=== PATIENT | female | born 1980 | race Two or more races ===

== ENCOUNTER 2023-01-28 04:02 | Emergency (ER) | payer OTHER ==
[~2023-01-28] VITALS: Ht 165.1 cm; Wt 113.4 kg
[2023-01-28 06:00] LABS: PH,URINE 5.5 (5.0-8.0); URINE APPEARANCE Clear; URINE BILIRRUBIN Negative (NEGATIVE); URINE BLOOD Moderate; URINE COLOR Yellow; URINE GLUCOSE Negative (NEGATIVE); URINE LEUKOCYTE Negative; URINE NITRATE Negative
[2023-01-28 06:04] LABS: URINE BACTERIA 32.7 uL (0.0-1933); URINE EPITHELIAL CELLS 6.9 uL (0.0-38.8); URINE RBC 30.8 uL (0.0-20.8); URINE WBC 4.9 uL (0.0-23.2)
[2023-01-28 06:10] LABS: HEMATOCRIT 33.6 % (36.0-45.00); MEAN CELL VOLUME 87.5 fL (80.00-100.00); MEAN CORPUSCULAR HEMOGLOBIN 28.7 pg (27.00-32.0); MEAN CORPUSCULAR HGB CONC 32.7 g/dl (32.0-36.0); PLATELET COUNT 169 K/uL (150-450); RED BLOOD COUNT 3.83 M/uL (4.00-6.00); RED CELL DISTRIBUTION WIDTH 14.2 % (11.5-14.5)
[2023-01-28 06:33] LABS: CALCIUM 8.7 mg/dL (8.5-10.1); CREATININE SERUM 0.92 mg/dL (0.55-1.02); GFR 66.94; POTASSIUM 3.8 mEq/L (3.5-5.1)
[2023-01-28 06:34] LABS: URINE PROTEIN 100 (NEGATIVE)
[2023-01-28] MEDS ORDERED: RYBELSUS14 MG PO (08:58)
[2023-01-28] MEDS ORDERED: PAXLOVID 300-11 EACH PO (08:58)
== END 2023-01-28 10:36 | disposition home or self-care (01) ==
LOC: ER 04:02
PROVIDERS: General Practice
DX: U07.1 COVID-19 (principal); Z91.012 Allergy to eggs; Z91.018 Allergy to other foods